=== PATIENT | female | born 1990 | race Two or more races ===

== ENCOUNTER 2021-11-26 11:38 | Emergency (ER) | payer MEDICAID, OTHER ==
[~2021-11-26] VITALS: Ht 152.4 cm; Wt 64.4 kg
[2021-11-26 13:26] LABS: Urine WBC None Seen /hpf (0 - 5)
[2021-11-26 13:48] LABS: Urine Bacteria NONE SEEN /hpf (None Seen); Urine Blood Negative /uL (Negative); Urine Budding Yeast MANY /hpf (None Seen); Urine Specific Gravity 1.018 (1.001-1.035)
[2021-11-26 14:16] VITALS: BP 152/100
[2021-11-26] MEDS ORDERED: SULF800T7 PO (14:35)
[2021-11-26] MEDS ORDERED: FLUCONAZOLE 100 MG TAB PO ONE (14:45)
[2021-11-26] MEDS ORDERED: cefTRIAXone SOD 1,000 MG VL IM ONE (14:45)
== END 2021-11-26 15:31 | disposition home or self-care (01) ==
LOC: ER 11:38
DX: T19.2XXA Foreign body in vulva and vagina, initial encounter (principal); Z79.899 Other long term (current) drug therapy; X58.XXXA Exposure to other specified factors, initial encounter; Y93.89 Activity, other specified; Y92.89 Other specified places as the place of occurrence of the external cause; Y99.8 Other external cause status
CPT/HCPCS: 81001; 81025; 96372; 99284; J0696

== ENCOUNTER 2022-01-30 14:03 | Emergency (ER) | payer MEDICAID ==
[~2022-01-30] VITALS: Ht 154.9 cm; Wt 64.9 kg
[2022-01-30 14:03] VITALS: BP 171/91
[~2022-01-30 14:03] MED LIST: SULF800T7 PO
== END 2022-01-30 14:51 | disposition home or self-care (01) ==
LOC: ER 14:03
DX: T19.2XXA Foreign body in vulva and vagina, initial encounter (principal); X58.XXXA Exposure to other specified factors, initial encounter; Y93.89 Activity, other specified; Y92.89 Other specified places as the place of occurrence of the external cause; Y99.8 Other external cause status

== ENCOUNTER 2024-09-15 20:44 | Emergency (ER) | payer MEDICAID ==
[~2024-09-15] VITALS: Ht 152.4 cm; Wt 84.0 kg
[~2024-09-15 20:44] MED LIST changes: +SULF800T23 PO; -SULF800T7 PO
[2024-09-15 20:48] VITALS: BP 183/113; PULSE 72; RESP 22; O2SAT 97
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
== END 2024-09-15 21:07 ==
LOC: ER 20:44
DX: F10.129 Alcohol abuse with intoxication, unspecified (principal); V43.52XA Car driver injured in collision with other type car in traffic accident, initial encounter; Y93.89 Activity, other specified; Y92.410 Unspecified street and highway as the place of occurrence of the external cause; Y99.8 Other external cause status